=== PATIENT | female | born 1985 | race Hispanic/Latino ===

== ENCOUNTER 2021-07-17 07:53 | Emergency (ER) | payer BC, OTHER ==
[2021-07-17 20:04] LABS: SARS-CoV-2 PCR by NAA Not Detected (NotDetected)
== END 2021-07-17 09:11 | disposition home or self-care (01) ==
LOC: CSHERS 07:53
DX: J06.9 Acute upper respiratory infection, unspecified (principal); Z20.822 Contact with and (suspected) exposure to COVID-19; Z87.19 Personal history of other diseases of the digestive system
CPT/HCPCS: 87804; 99284; U0003; U0005